=== PATIENT | female | born 1955 | race American Indian/Alaskan Native ===

== ENCOUNTER 2018-09-09 10:14 | Outpatient (CLI) | payer OTHER ==
--- NOTE | 2018-09-23 08:14 | Magnetic Resonance Report ---
BILATERAL BREAST MRI WITHOUT AND WITH CONTRAST: 09/09/18 10:14:00 CLINICAL: Diffuse cystic mastopathy. COMPARISON:06/05/18 and 06/29/18 mammograms. TECHNIQUE: Axial 1.0-mm T1 without, axial high resolution 2.0-mm T2 and axial 1.0-mm dynamic Vibrant high-resolution postcontrast T1 fat saturation sequences on a 1.5 Caty magnet. The examination was performed with an 8 channel dedicated [place] breast coil. Post processing with CAD and subtraction was performed on an [employer] workstation. 18.0 cc of Multihance was injected without incident for the contrast portion of the exam. Consent was obtained prior to the administration of the contrast. FINDINGS: Right: Minimal background parenchymal enhancement. No mass or suspicious enhancement. No suspicious lymph nodes. Left: Minimal background parenchymal enhancement. No mass or suspicious enhancement. No suspicious lymph nodes. IMPRESSION: Normal study. BI-RADS 1 - - Negative
== END 2018-09-09 10:15 | disposition home or self-care (01) ==
LOC: SPVIMAG 10:14
PROVIDERS: ATTEND Surgery
DX: N60.11 Diffuse cystic mastopathy of right breast (principal); N60.12 Diffuse cystic mastopathy of left breast; Z80.3 Family history of malignant neoplasm of breast
CPT/HCPCS: A9577; C8908; 77059

== ENCOUNTER 2021-04-10 12:44 | Outpatient (CLI) | payer MEDICARE ==
--- NOTE | 2021-04-12 14:07 | Magnetic Resonance Report ---
Bilateral breast MRI with and without contrast. History: Family history of breast and ovarian cancer Procedure: Axial T1 and T2-weighted fat-sat images were obtained precontrast. 18 cc Clariscan was in jected intravenously and serial axial T1-weighted images with fat saturation were obtained postcontra st. 3-D MIP projections, Kinetic analysis and subtraction imaging was utilized to evaluate. A agencyQ ed 8 channel breast coil was utilized for image acquisition. Comparison: MR breast 09/09/2018, bilateral mammogram 06/12/2020 Findings: Background level of enhancement is mild. No suspicious axillary or clavicular nodes are identified. No abnormal bone marrow signal is seen. No significant chest wall enhancement is noted. Right breast: Small intramammary node is again seen. Mild benign-appearing enhancement is stable from prior study in 2018. No suspicious lesions are seen. Left breast: Mild benign-appearing enhancement is seen without change. No suspicious lesions are seen . Impression: No suspicious lesions are seen BIRADS: 2: Benign Signer Name: Brian Cummings MD Signed: 04/12/2021 2:03 PM Workstation Name: [id number]
== END 2021-04-10 12:45 | disposition home or self-care (01) ==
LOC: SPVIMAG 12:44
PROVIDERS: ATTEND Surgery
DX: N63.10 Unspecified lump in the right breast, unspecified quadrant (principal); N60.11 Diffuse cystic mastopathy of right breast; N60.12 Diffuse cystic mastopathy of left breast; Z80.3 Family history of malignant neoplasm of breast
CPT/HCPCS: A9575; C8908; 77049

== ENCOUNTER 2022-06-20 10:17 | Outpatient (CLI) | payer MEDICARE ==
--- NOTE | 2022-06-24 08:40 | Mammography Report ---
DIGITAL SCREENING MAMMOGRAM WITH CAD, 06/20/2022 CLINICAL INFORMATION / INDICATION: Routine screening mammography. SCREENING MAMMO Z12.31 TECHNIQUE: Digital bilateral 2D mammography was obtained in the craniocaudal and mediolateral obliqu e projections. This examination was interpreted with the benefit of Computer-Aided Detection analysis . COMPARISON: 06/12/2020 FINDINGS: Breast Density: The breasts are almost entirely fatty. No dominant mass, suspicious calcifications, or architectural distortion in either breast. No interval change. IMPRESSION: No mammographic evidence of malignancy. Follow up recommendation: Routine yearly screening mammogram. BI-RADS Category 1: NEGATIVE A "normal" or negative report should not discourage follow up or biopsy of a clinically significant f inding. A written summary of these findings will be mailed to the patient. The patient will be entered into a mammography reporting system which will generate a reminder letter for the patient's next appointmen t at the appropriate interval. The [employer] recommends yearly mammograms starting at age 40 and continuing as l kai as a woman is in good health. Breast MRI is recommended for women with an approximate 20-25% or greater lifetime risk of breast cancer, including women with a strong family history of breast or ova apple cancer or who have been treated for Hodgkin's disease. Signer Name: Jessie Aviles MD Signed: 06/24/2022 8:36 AM Workstation Name: [id number]
== END 2022-06-20 10:18 | disposition home or self-care (01) ==
LOC: SPVWC 10:17
PROVIDERS: ATTEND Surgery
DX: Z12.31 Encounter for screening mammogram for malignant neoplasm of breast (principal)
CPT/HCPCS: 77067